=== PATIENT | male | born 1990 | race Two or more races ===

== ENCOUNTER 2017-12-05 06:26 | Emergency (ER) | payer MEDICAID, OTHER ==
[~2017-12-05] VITALS: Ht 172.7 cm; Wt 68.0 kg
[2017-12-05] MEDS ORDERED: LIDOCAINE 1% (LOCAL ANESTH.) PF 5ml SDV IN ONE (06:45)
[2017-12-05] MEDS ORDERED: TETANUS-DIPTH-ACEL PERTUSSIS 0.5ML SYRG IM ONE (06:45)
[2017-12-05] MEDS ORDERED: cefTRIAXone 1GM/10ml IVPUSH 10 ML IV ONE (06:50)
[2017-12-05] MEDS ORDERED: LIDOCAINE 1% HCL (LOCAL ANESTH.) INJ 20ML MDV ONE (06:51)
[2017-12-05] MEDS ORDERED: cefTRIAXone W LIDOCAINE 1 GM IM IM ONE (07:00)
[2017-12-05] MEDS ORDERED: HYDROcodone-ACET 10/325MG TAB PO ONE (08:00)
[2017-12-05 08:33] VITALS: BP 122/67
[2017-12-05] MEDS ORDERED: NEOMYCIN-BACITRACIN-POLYM 15GM TOP OINT TOP SCH (10:00)
== END 2017-12-05 09:03 | disposition home or self-care (01) ==
LOC: EDBD → ER 06:26
DX: S01.111A Laceration without foreign body of right eyelid and periocular area, initial encounter (principal); S00.83XA Contusion of other part of head, initial encounter; Y08.89XA Assault by other specified means, initial encounter; Y93.89 Activity, other specified; Y92.89 Other specified places as the place of occurrence of the external cause; Y99.8 Other external cause status
CPT/HCPCS: 12014; 70450; 70486; 90471; 90715; 96372; 99284; J0696; J2001

== ENCOUNTER 2017-12-05 13:29 | Emergency (ER) | payer MEDICAID ==
[~2017-12-05] VITALS: Ht 172.7 cm; Wt 68.0 kg
[2017-12-05 16:13] VITALS: BP 108/78
== END 2017-12-05 16:22 | disposition left against medical advice (07) ==
LOC: ER 13:29
DX: S09.90XA Unspecified injury of head, initial encounter (principal); X58.XXXA Exposure to other specified factors, initial encounter; Y93.89 Activity, other specified; Y92.89 Other specified places as the place of occurrence of the external cause; Y99.8 Other external cause status
CPT/HCPCS: 70450

== ENCOUNTER 2017-12-06 19:27 | Emergency (ER) | payer MEDICAID ==
[~2017-12-06] VITALS: Ht 172.7 cm; Wt 68.0 kg
[2017-12-06 22:00] VITALS: BP 112/78
== END 2017-12-06 22:30 | disposition short-term general hospital (02) ==
LOC: ER 19:27
DX: S06.360A Traumatic hemorrhage of cerebrum, unspecified, without loss of consciousness, initial encounter (principal); S05.11XA Contusion of eyeball and orbital tissues, right eye, initial encounter; Y08.89XA Assault by other specified means, initial encounter; Y93.89 Activity, other specified; Y99.8 Other external cause status; Y92.89 Other specified places as the place of occurrence of the external cause
CPT/HCPCS: 70450; 70486

== ENCOUNTER 2021-06-28 08:35 | Emergency (ER) | payer MEDICAID ==
[~2021-06-28] VITALS: Ht 172.7 cm; Wt 68.0 kg
[2021-06-28 09:34] VITALS: BP 121/61
== END 2021-06-28 09:28 | disposition home or self-care (01) ==
LOC: ER 08:35
DX: J02.9 Acute pharyngitis, unspecified (principal)